=== PATIENT | male | born 1975 | race Two or more races ===

== ENCOUNTER 2022-02-17 00:33 | Emergency (ER) | payer OTHER ==
[~2022-02-17] VITALS: Ht 180.3 cm; Wt 84.0 kg
[2022-02-17] MEDS ORDERED: ASPirin 81 mg TAB PO ONE (00:45)
[2022-02-17] MEDS ORDERED: SODIUM CHLORIDE 0.9% 1,000 ML IV ONE ×2 (00:45→02:00)
[2022-02-17] MEDS ORDERED: SODIUM CHLORIDE 0.9% 2,000 ML IV ONE (01:15)
[2022-02-17 01:20] LABS: Basophils # (auto) 0 10 ^3/uL (0-0.2); Eosinophils # (auto) 0 10 ^3/uL (0-0.8); Eosinophils % (auto) 0.8 % (0.0-7.0); Hemoglobin 11.4 g/dL (13.5-17.5); Lymphocytes # (auto) 0.1 10 ^3/uL (0.4-5.4); Monocytes # (auto) 0.1 10 ^3/uL (0-1.3); Monocytes % (auto) 6.1 % (0.0-12.0); Neutrophils # (auto) 1.9 10 ^3/uL (1.6-8.6); Nucleated Red Blood Cells % 0.1 %; White Blood Cell 2.2 10^3/uL (4.4-10.8)
[2022-02-17 01:22] LABS: Basophils % (auto) 0.2 % (0.0-2.0); Hematocrit 31.8 % (41.0-53.0); INR 1.59 (0.9-1.15); Lymphocytes % (auto) 6.1 % (10.0-50.0); Mean Corpuscular Hemoglobin 33.2 pg (28.0-32.0); Mean Corpuscular Hgb Conc. 35.9 g/dL (32.0-36.0); Mean Corpuscular Volume 92.7 fL (80.0-100.0); Neutrophils % (auto) 86.8 % (37.0-80.0); Partial Thromboplastin Time 38.3 sec (24.6-33.4); Red Blood Cells 3.43 10^6/uL (4.5-5.90)
[2022-02-17 01:27] LABS: Albumin 2.4 g/dL (3.4-5.0); BUN/Creatinine Ratio 14.3; Calcium 7.5 mg/dL (8.5-10.1); Potassium 4.6 mmol/L (3.5-5.1)
[2022-02-17 01:29] LABS: Bilirubin, Total 3.2 mg/dL (0.2-1.0); Total Protein 5.9 g/dL (6.4-8.2)
[2022-02-17 01:34] LABS: Lactic Acid w/Reflex 4.9 mmol/L (0.4-2.0)
[2022-02-17] MEDS ORDERED: CEFTRIAXONE SODIUM 2 GM in D5W 5% 50 ML IV ONE (02:00)
[2022-02-17] MEDS ORDERED: cefTRIAXone 1GM/50ML D5W 100 ML IV ONE (02:03)
[2022-02-17] MEDS ORDERED: PIPERACILLIN-TAZOB 3.375GM 100 ML IV ONE (02:30)
[2022-02-17] MEDS ORDERED: NOREPINEPHRINE 8 MG/250ML KIT 250 ML IV ONE (04:08)
[2022-02-17] MEDS ORDERED: NOREPINEPHRINE 8 MG/250ML KIT 250 ML IV SCH (04:15)
[2022-02-17 04:22] LABS: Urine Bacteria NONE SEEN /hpf (None Seen); Urine Blood 2+ /uL (Negative); Urine Specific Gravity 1.013 (1.001-1.035); Urine WBC 1 /hpf (0 - 3)
[2022-02-17 06:50] LABS: Basophils # (auto) 0 10 ^3/uL (0-0.2); Eosinophils # (auto) 0 10 ^3/uL (0-0.8); Monocytes # (auto) 0.1 10 ^3/uL (0-1.3); White Blood Cell 2.8 10^3/uL (4.4-10.8)
[2022-02-17 06:52] LABS: Eosinophils % (auto) 0.2 % (0.0-7.0); Lymphocytes # (auto) 0.1 10 ^3/uL (0.4-5.4); Lymphocytes % (auto) 3.7 % (10.0-50.0); Mean Corpuscular Hemoglobin 32.7 pg (28.0-32.0); Mean Corpuscular Hgb Conc. 35.3 g/dL (32.0-36.0); Mean Corpuscular Volume 92.7 fL (80.0-100.0); Monocytes % (auto) 4.8 % (0.0-12.0); Neutrophils # (auto) 2.6 10 ^3/uL (1.6-8.6); Neutrophils % (auto) 91.3 % (37.0-80.0); Nucleated Red Blood Cells % 0.2 %; Red Blood Cells 3.67 10^6/uL (4.5-5.90); Red Cell Distribution Width 14.8 % (11.8-14.3)
[2022-02-17 06:56] LABS: Albumin 2.4 g/dL (3.4-5.0); Calcium 7.5 mg/dL (8.5-10.1); Potassium 4.2 mmol/L (3.5-5.1)
[2022-02-17 07:01] LABS: BUN/Creatinine Ratio 16.8
[2022-02-17] MEDS ORDERED: ALBUMIN 5% 50 ML IV ONE (07:45)
[2022-02-17 08:17] VITALS: BP 107/57
[2022-02-17] MEDS ORDERED: ACETAMINOPHEN 500 MG TAB PO ONE ×2 (08:19→08:30)
== END 2022-02-17 05:24 | disposition short-term general hospital (02) ==
LOC: EEVIPCON 00:33 → ER 00:33
DX: A41.9 Sepsis, unspecified organism (principal); R94.31 Abnormal electrocardiogram [ECG] [EKG]
CPT/HCPCS: 36415; 71045; 76700; 76705; 80053; 81001; 82270; 82550; 82947; 83605; 83690; 83880; 84484; 85025; 85610; 85730; 87040; 87045; 87427; 93005; 96365; 96366; 96367; 96368; 99285; J0696; J2543; J7030; J7060; P9041